=== PATIENT | female | born 1995 | race Caucasian/White ===

== ENCOUNTER 2017-04-21 22:49 | Emergency (ER) | payer BC, OTHER ==
[2017-04-22 00:03] LABS: BASOPHILS 0.2 %; BASOPHILS ABSOLUTE 0.02 10/3/uL (0.0-0.16); EOSINOPHILS 0.9 %; EOSINOPHILS ABSOLUTE 0.11 10/3/uL (0.0-0.53); ER CBC TAT 0 Hrs 02 Mins; HEMATOCRIT 31.7 % (36.0-48.0); HEMOGLOBIN 10.8 g/dL (12.0-16.0); IMMATURE GRANULOCYTES ABSOLUTE 0.12 10/3/uL (0.0-0.11); LYMPHOCYTES 17.7 %; LYMPHOCYTES ABSOLUTE 2.18 10/3/uL (0.67-4.30); MEAN CORPUS HGB CONC 34.1 g/dL (32.0-36.0); MEAN CORPUSCULAR HEMOGLOB 30.2 pg (26.0-34.0); MEAN CORPUSCULAR VOLUME 88.5 fL (80-100); MEAN PLATELET VOLUME 9.5 fL (9.2-13.0); MONOCYTES 5.8 %; MONOCYTES ABSOLUTE 0.71 10/3/uL (0.21-1.20); NEUTROPHILS 74.4 %; NEUTROPHILS ABSOLUTE 9.19 10/3/uL (2.02-8.40); PLATELET COUNT 214 10/3/uL (150-400); RBC DISTRIBUTION WIDTH 13.6 % (12.0-16.0); RED CELL COUNT 3.58 10/6/uL (4.0-5.6); WHITE BLOOD CELLS 12.3 10/3/uL (4.5-10.5)
[2017-04-22 00:04] LABS: MANUAL DIFF NO %
[2017-04-22 00:15] LABS: BUN (BLOOD UREA NITROGEN) 8 MG/DL (6-23); CALCIUM, SERUM 8.8 MG/DL (8.5-10.4); CHLORIDE, SERUM 107 MMOL/L (96-112); CO2 (CARBON DIOXIDE) 26 MMOL/L (24-34); CREATININE 0.49 MG/DL (0.55-1.02); GFR AFRICAN AMERICAN 160 ML/MIN (>=60); GFR NON AFRICAN AMERICAN 138 ML/MIN (>=60); GLUCOSE, SERUM 74 MG/DL (60-99); SODIUM, SERUM 141 MMOL/L (135-148)
[2017-04-22 01:04] LABS: ASCORBIC ACID (UR NOT ORDER) 40 (NEG); BILIRUBIN, URINE NEGATIVE (NEG); ER URINALYSIS TAT 0 Hrs 00 Mins; KETONE, URINE NEGATIVE (NEG); LEUKOCYTE ESTERASE(NOT OR TRACE (NEG); NITRITE (URINE) NEG (NEG); WBC (NOT ORDERED) (RFLEX) 3 (0-5)
== END 2017-04-22 02:02 | disposition home or self-care (01) ==
LOC: ER 22:49
PROVIDERS: Hospitalist
DX: O46.93 Antepartum hemorrhage, unspecified, third trimester (principal); Z3A.29 29 weeks gestation of pregnancy
CPT/HCPCS: 36415; 76815; 80048; 81001; 85025; 86850; 86900; 86901; 99284